=== PATIENT | male | born 1935 | race Caucasian/White ===

== ENCOUNTER → 2017-06-10 | Outpatient (CLI) | payer MEDICARE ==
[~2017-06-10] VITALS: Ht 185.4 cm; Wt 81.0 kg
[~2017-06-10] MED LIST: ASPI81TA23 PO; ATEN25TA PO; CHLORHEXIDINE GLUCONATE 2 % 1 PACK (2 CLOTHS) TOPICAL PRN; FEXO15TA PO; GABA300C5 PO; INSULIN HUMAN REGULAR 1,000 UNITS/10 ML VIAL SQ PRN; LACTATED RINGER'S 1000 ML IV PRN; LEVO150T7 PO; LIDOCAINE HCL 1% PF 5 ML SYRINGE OTHER ONE; METOPROLOL TARTRATE 25 MG TAB PO PRN; POVIDONE IODINE 5% (ANTISEPSIS KIT) 4 APPLICATIONS EACH NARE PRN; PRIL20TA2 PO; PROPOFOL 200 MG/20 ML AMP IV ONE; PROPOFOL 200 MG/20 ML AMP ONE; SIMV10TA PO; SODIUM CHLORID 0.9% 500 ML INJ 500 ML IV ONE; SODIUM CHLORID 0.9% 500 ML IV PRN; SYNT175T PO
--- NOTE | 2017-06-10 17:37 | PD.PROCEDR ---
GI Procedure PROCEDURE PERFORMED EGD with upper esophageal sphincter myotomy INDICATION FOR PROCEDURE Dysphagia, Zenker's diverticulum PROCEDURE: The procedure, risks and benefits were discussed with Mr. Woodard and informed consent was obtained. Anesthesia sedated him with Diprivan. He was placed in the left lateral decubitus position. EGD: The Pentax videoscope was introduced through the oropharynx and advanced to the second portion of the duodenum under direct visualization. Retroflexion was performed in the stomach. 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
[2017-06-10 18:20] VITALS: BP 179/88; PULSE 56; RESP 16; TEMP 98.4; O2SAT 100
--- NOTE | 2017-06-10 21:55 | EKG ---
Date Performed: 06/10/2017 Time Performed: 09:21:05 PTAGE: 81 years EKG: SINUS BRADYCARDIA LEFT ANTERIOR FASCICULAR BLOCK VOLTAGE CRITERIA FOR LVH ABNORMAL ECG PREVIOUS TRACING : 11/22/2013 11.25 Since the prior tracing, there has been no significant skelton DOCTOR: Farzana Dobbins Interpretating Date/Time 06/10/2017 21:53:31
== END ==
LOC: HSDC 08:07
PROVIDERS: ATTEND Hospitalist
DX: K22.5 Diverticulum of esophagus, acquired (principal); R13.10 Dysphagia, unspecified; R10.9 Unspecified abdominal pain; R10.13 Epigastric pain; M43.10 Spondylolisthesis, site unspecified; J90 Pleural effusion, not elsewhere classified; J01.90 Acute sinusitis, unspecified; I20.9 Angina pectoris, unspecified; M25.579 Pain in unspecified ankle and joints of unspecified foot; G25.0 Essential tremor; M54.12 Radiculopathy, cervical region; K59.00 Constipation, unspecified; R05 Cough; L30.9 Dermatitis, unspecified; R06.00 Dyspnea, unspecified; R97.20 Elevated prostate specific antigen [PSA]; R26.9 Unspecified abnormalities of gait and mobility; K21.9 Gastro-esophageal reflux disease without esophagitis; N62 Hypertrophy of breast; E06.3 Autoimmune thyroiditis; B02.29 Other postherpetic nervous system involvement; I10 Essential (primary) hypertension; E87.5 Hyperkalemia; E03.9 Hypothyroidism, unspecified; R93.9 Diagnostic imaging inconclusive due to excess body fat of patient; G47.00 Insomnia, unspecified; M25.569 Pain in unspecified knee; M17.10 Unilateral primary osteoarthritis, unspecified knee; M48.061 Spinal stenosis, lumbar region without neurogenic claudication; J98.4 Other disorders of lung; K12.30 Oral mucositis (ulcerative), unspecified; D47.2 Monoclonal gammopathy; E04.1 Nontoxic single thyroid nodule; R20.0 Anesthesia of skin; G62.9 Polyneuropathy, unspecified; H11.002 Unspecified pterygium of left eye; I73.9 Peripheral vascular disease, unspecified; Z98.1 Arthrodesis status; J02.9 Acute pharyngitis, unspecified; R21 Rash and other nonspecific skin eruption; Z01.810 Encounter for preprocedural cardiovascular examination
CPT/HCPCS: 00500; 43499; 93005; J7040; J7120